=== PATIENT | male | born 1975 | race African-American/Black ===

== ENCOUNTER 2023-03-23 00:23 | Emergency (ER) | payer MEDICAID, OTHER ==
[~2023-03-23] VITALS: Ht 180.3 cm; Wt 100.0 kg
[2023-03-23 00:53] LABS: BASOPHILS % 0.3 % (0.0-2.0); EOSINOPHILS % 2.4 % (0.0-5.0); HEMATOCRIT. 31.3 % (42.0-52.0); HEMOGLOBIN. 10.5 g/dL (14.0-18.0); LYMPHOCYTES % 47.9 % (20.0-50.0); MEAN CORPUSCULAR HEMOGLOBIN 31.2 pg (28.0-32.0); MEAN CORPUSCULAR VOLUME 92.6 fL (80.0-94.0); MEAN PLATELET VOLUME 9.4 fl (7.4-10.4); MONOCYTES % 6.3 % (2.0-8.0); NEUTROPHILS % 43.1 % (40.0-76.0); PLATELET 219 x1000/uL (130-400); RED BLOOD CELL COUNT 3.38 mill/uL (4.7-6.1); RED CELL DISTRIBUTION WIDTH 13.1 % (11.6-14.6)
[2023-03-23 01:00] LABS: CHLORIDE 106 mEq/L (98-107)
[2023-03-23] MEDS ORDERED: LEVETIRACETAM 500MG PREMIX 100 ML IV ONE (01:30)
[2023-03-23] MEDS: SODIUM CHLORIDE 0.9% 1,000 ML IV NR ×3 (02:24→03:51)
[2023-03-23 03:43] VITALS: BP 142/75
== END 2023-03-23 03:54 | disposition home or self-care (01) ==
LOC: ER 00:23
DX: R56.9 Unspecified convulsions (principal); I10 Essential (primary) hypertension; E16.2 Hypoglycemia, unspecified
CPT/HCPCS: 36415; 71045; 80053; 83735; 85025; 96374; 99284; J1953

== ENCOUNTER 2023-04-08 03:49 | Inpatient (IN) | payer MEDICAID, OTHER ==
[~2023-04-08] VITALS: Ht 175.3 cm; Wt 77.1 kg
[2023-04-08] MEDS ORDERED: LORAZEPAM 2MG/ML CPJ IV ONE (04:15)
[2023-04-08] MEDS ORDERED: LEVETIRACETAM 1000MG PREMIX 100 ML IV ONE (04:15)
[2023-04-08 05:10] LABS: BASOPHILS % 0.6 % (0.0-2.0); EOSINOPHILS % 1.7 % (0.0-5.0); HEMATOCRIT. 28.9 % (42.0-52.0); HEMOGLOBIN. 9.8 g/dL (14.0-18.0); LYMPHOCYTES % 29.1 % (20.0-50.0); MEAN CORPUSCULAR HEMOGLOBIN 31.5 pg (28.0-32.0); MEAN CORPUSCULAR VOLUME 92.8 fL (80.0-94.0); MEAN PLATELET VOLUME 9.4 fl (7.4-10.4); MONOCYTES % 9.3 % (2.0-8.0); NEUTROPHILS % 59.3 % (40.0-76.0); PLATELET 236 x1000/uL (130-400); RED BLOOD CELL COUNT 3.12 mill/uL (4.7-6.1); RED CELL DISTRIBUTION WIDTH 13.4 % (11.6-14.6)
[2023-04-08 05:12] LABS: CHLORIDE 110 mEq/L (98-107)
[2023-04-08] MEDS ORDERED: SODIUM CHLORIDE 0.9% 1,000 ML IV ONE (05:30)
[2023-04-08 08:30] VITALS: BP 141/91; PULSE 84; RESP 20; TEMP 98.9
[2023-04-08] MEDS ORDERED: ACETAMINOPHEN 325MG TABLET PO PRN (09:15)
[2023-04-08] MEDS ORDERED: ONDANSETRON HCL 4MG/2ML INJ IV PRN (09:15)
[2023-04-08] MEDS ORDERED: POTASSIUM CHLORIDE 20MEQ TABLET SR PO NR (11:00)
[2023-04-08] MEDS ORDERED: KEPP500 PO ×2 (11:56→12:40)
[2023-04-08 12:18] VITALS: BP 136/94; PULSE 80; RESP 18; TEMP 98
[2023-04-08 14:14] VITALS: BP 136/94; PULSE 80; RESP 18; TEMP 98
[2023-04-08 16:00] VITALS: BP 140/86; PULSE 80; RESP 18; TEMP 98.6
[2023-04-08] MEDS ORDERED: LEVETIRACETAM 500MG PREMIX 100 ML IV SCH (18:00)
[2023-04-08 18:35] VITALS: BP 140/86; PULSE 80; TEMP 98.6; O2SAT 99
== END 2023-04-08 19:15 | DRG 53 ==
LOC: ER 03:49 → 7WST 05:31 → EDBEDREQ 06:04
PROVIDERS: ADMIT Internal Medicine; ATTEND Internal Medicine
DX: G40.901 Epilepsy, unspecified, not intractable, with status epilepticus (principal); N17.0 Acute kidney failure with tubular necrosis; D64.9 Anemia, unspecified; E87.6 Hypokalemia; I10 Essential (primary) hypertension
CPT/HCPCS: 36415; 71045; 80053; 83605; 85025; 99285; J1953; J2060; J7030